=== PATIENT | female | born 1950 | race Caucasian/White ===

== ENCOUNTER 2016-10-04 14:04 | Emergency (ER) | payer OTHER, MEDICAID ==
[2016-10-04 14:25] VITALS: RESP 16
[2016-10-04] MEDS ORDERED: LIDOCAINE 2% 100 MG/5 ML SYR IVP ONE (15:40)
[2016-10-04] MEDS ORDERED: LIDOCAINE 2% JELLY 5 ML TUBE ONE (15:41)
--- NOTE | 2016-10-04 16:09 | EDPHY ---
H & P Time Seen by Provider: 10/04/16 15:32 HPI/ROS: CHIEF COMPLAINT: Right spence laceration HISTORY OF PRESENT ILLNESS: 66-year-old female presents emergency department with a laceration to her right spence. Patient was shoveling ice, stood on the shovel and slipped off scraping her spence on the shovel. Patient reports her tetanus is up-to-date. She denies numbness or tingling in this leg, she denies other complaints. Smoking Status: Never smoked Physical Exam: GEN: Awake, alert, oriented, no acute distress RESP: nl resp effort MSK: Right knee and ankle with full range of motion, 2+ pedal pulses, sensation intact to light touch SKIN: 7 cm v-shaped laceration to right anterior spence Constitutional: Initial Vital Signs Temperature (C) 36.4 C 10/04/16 14:23 Heart Rate 93 10/04/16 14:23 Respiratory Rate 16 10/04/16 14:23 Blood Pressure 128/88 H 10/04/16 14:23 O2 Sat (%) 94 10/04/16 14:23 O2 Delivery Mode Room Air Allergies/Adverse Reactions: No Known Allergies Allergy (Verified 07/09/16 22:19) Home Medications: Medication Instructions Recorded Cephalexin [Keflex] 500 mg PO TID 5 Days 10/04/16 MDM/Departure - MDM Diagnostics: Right tib-fib x-ray independently reviewed by - No fracture Procedures: Procedure: Laceration repair. Verbal consent was obtained from the patient. The 7 cm v-shaped laceration on the right spence was anesthetized using mixture of 1% lidocaine with epinephrine and 0.5% bupivacaine with epinephrine. The wound was carefully irrigated by the emergency department dental technician apprentice. Next, the wound was prepped and draped in sterile fashion and explored to its base with a gloved finger. There were no deep structures involved. No tendon injury was identified. No vascular injury was identified. No foreign bodies were identified. The wound was repaired with 5.0 Prolene, 8 simple interrupted sutures. 5 Steri- Strips The wound repair was complex. Multiple wound margins required revising, significant debridement was required. The procedure was performed by myself. Tetanus and antibiotic status were addressed. ED Course/Re-evaluation: 66-year-old female presents with a laceration to her right lower leg that occurred 5 hours prior to arrival. X-rays negative for fracture, laceration was difficult to suture and required debridement as skin was very thin and swelling made it difficult. A combination of Steri-Strips and sutures were placed. The patient has been given strict instructions to elevate and stay off of this leg for the next 7 days. She agrees to follow up with her primary care doctor on Friday for wound recheck. Patient has been placed on Keflex. She is given return precautions for signs of infection. - Depart Disposition: Home, Routine, Self-Care Clinical Impression: Laceration of right lower leg Qualifiers: Encounter type: initial encounter Qualifier Code: (S81.811A) Laceration without foreign body, right lower leg, initial encounter Condition: Good Instructions: Laceration (ED), Care For Your Stitches (ED) Additional Instructions: Follow-up with your primary care doctor on Friday for re-evaluation and wound check. Keep your dressing clean and dry until this appointment. Stay off of your feet for the next 7 days and elevate your leg as much as possible. Take your antibiotics as prescribed. Stitches need to be removed in 14 days. Return to the emergency department for any signs of infection, redness, pain, drainage, fevers Prescriptions: Cephalexin [Keflex] 500 mg PO TID 5 Days Referrals: Kelby Chance MD [Medical Doctor] - As per Instructions
--- NOTE | 2016-10-04 16:44 | DX ---
Right Tibia and Fibula - 2 views Indication: Deep laceration. Blunt trauma with shovel. Comparison: None Technique: AP and lateral views. Findings: Soft tissue deformity is present along the anterior aspect of the distal tibial diaphysis. No acute fracture or retained foreign body. Degenerative arthropathy at the ankle is partially imaged . Impression: Soft tissue injury. No acute fracture or foreign body.
[2016-10-04 17:05] VITALS: BP 151/100; PULSE 98; TEMP 98.2; O2SAT 96
== END 2016-10-04 17:14 | disposition home or self-care (01) ==
PROC: 0HQKXZZ Repair Right Lower Leg Skin, External Approach (ICD-10-PCS; principal; 2016-10-04)
DX: S81.811A Laceration without foreign body, right lower leg, initial encounter (principal); W27.8XXA Contact with other nonpowered hand tool, initial encounter; Y93.89 Activity, other specified
CPT/HCPCS: 12002; 73590; 99283; J2001